=== PATIENT | male | born 1965 | race Caucasian/White ===

== ENCOUNTER 2019-06-11 14:02 | Emergency (ER) | payer BC ==
[~2019-06-11] VITALS: Ht 162.6 cm; Wt 68.0 kg
[2019-06-11] MEDS ORDERED: ZITHROMAX500 MG PO (17:30)
== END 2019-06-11 18:05 | disposition home or self-care (01) ==
LOC: ER 14:02
DX: R04.0 Epistaxis (principal); B96.0 Mycoplasma pneumoniae [M. pneumoniae] as the cause of diseases classified elsewhere